=== PATIENT | female | born 1975 | race Caucasian/White ===

== ENCOUNTER → 2020-05-12 11:13 | Outpatient (BNVA) | payer OTHER, SELFPAY | PROVIDERS: PCP Internal Medicine; Visit Provider Orthopaedic Surgery | DX: M75.41 Impingement syndrome of right shoulder (principal) | CPT/HCPCS: 20610; J1100 ==

== ENCOUNTER 2020-07-05 15:00 | Outpatient (RCR) | payer OTHER, SELFPAY ==
--- NOTE | 2020-06-07 14:37 | MHC.PT.EP ---
[facility] [place] Office [place] Office [place] Office [address] Naomi Martins [address] [phone] F: [phone] F: [phone] F: [phone] F: [phone] Physical Therapy Plan of Care Date of Evaluation: 06/07/20 Date of Surgery: Diagnosis: R shoulder impingement. Assessment: Pt is a 44 y/o right hand dominant female referred to PT for eval and treat of R shoulder impingement who presents with signs and symptoms consistent with Dx resulting in decreased tolerance and ability to perform reaching a high shelf, dressing pullovers, performing fitness activities, and carrying objects of weight as well as disturbed sleep secondary to decreased UE strength and ROM, decreased posture, and pain. Pt is deemed an appropriate candidate to receive skilled PT in order to address her physical limitations to improve her functional ability. Frequency and Duration: The patient will be seen 2 x/ wk x 5 wks, Short Term Goals: In 1 week: initiate HEP with evidence of compliance. In 3 weeks: symmetrical pain free AROM achieved. Sap Director Goals: In 5 weeks: I with HEP. In 5 weeks: Pt will report no longer disturbed of sleep d/t shoulder pain. In 5 weeks: Improve R shoulder Flexion MMT to > 4+/5 and painless; initial: 4/5. and painful. Treatment Plan: Modalities to reduce pain, spasms and effusion. Manual therapy to restore motion and function. Therapeutic exercise to improve strength and flexibility. Neuromuscular re-education for posture and balance. Therapeutic activities to return to functional activities of daily living. Electronically signed by: William Paris PT. Please sign and return to therapist. Thank you for your referral.
--- NOTE | 2020-07-05 19:28 | MHC.PT.DC ---
[facility] [place] Office [place] Office [place] Office [address] Naomi Martins 140 [facility] [phone] F: [phone] F: [phone] F: [phone] F: [phone] Physical Therapy Discharge Report Diagnosis: R shoulder impingement. Date of Surgery: Date of Evaluation: 06/07/20 Date of Discharge: 07/05/20 Treatments to Date: 6 Cancellations to Date: 0 No Shows to Date: 0 Discharge Status: Patient Elected to Stop Recommend MD Follow-up Discharge Summary: Yajaira has been an active participant in her therapy in the clinic, she has attended 6 therapy sessions and feels good with scapular exercises in a favorable position though persists with R shoulder pain with flexion and abduction activities, she also persists with significantly disturbed sleep d/t shoulder pain. Pt's subjective shoulder pain and disability questionnaire worsened from 37% on evaluation to 52% indicating the patient is not progressing at this time and terminating therapy is indicated. Pt in agreement with DC at this time. Electronically signed by: Wililam Paris PT Please sign and return to therapist. Thank you for your referral.
== END 2020-07-05 19:37 | disposition home or self-care (01) ==
LOC: HO.PTCHIC 15:00
PROVIDERS: PCP Internal Medicine; Visit Provider Orthopaedic Surgery
DX: M75.41 Impingement syndrome of right shoulder (principal)
CPT/HCPCS: 97014; 97033; 97110; 97161

== ENCOUNTER → 2020-08-01 08:25 | Outpatient (BNVA) | payer OTHER, SELFPAY | PROVIDERS: PCP Internal Medicine; Visit Provider Orthopaedic Surgery ==

== ENCOUNTER 2020-08-15 13:41 | Outpatient (REF) | payer OTHER, SELFPAY ==
[2020-08-20 11:36] LABS: HPV 16 RNA NOT DETECTED (NOT DETECTED); HPV mRNA E6/E7 rflx Detected (Not Detected)
== END 2020-08-15 13:42 | disposition home or self-care (01) ==
LOC: HO.LAB 13:41
PROVIDERS: PCP Internal Medicine; Visit Provider Advanced Practice Midwife
DX: Z01.411 Encounter for gynecological examination (general) (routine) with abnormal findings (principal); Z11.51 Encounter for screening for human papillomavirus (HPV); T83.32XA Displacement of intrauterine contraceptive device, initial encounter; N88.9 Noninflammatory disorder of cervix uteri, unspecified
CPT/HCPCS: 87624; 87625; 88142

== ENCOUNTER 2020-08-22 14:53 | Outpatient (REF) | payer OTHER, SELFPAY ==
--- NOTE | ~2020-08-22 | MR_ITS ---
EXAMINATION: MR SHOULDER WITHOUT CONTRAST, RIGHT CLINICAL INFORMATION: Impingement syndrome of the right shoulder. Pain while moving. COMPARISON: None TECHNIQUE: MRI of the shoulder without contrast was performed on a high-field scanner. FINDINGS: ROTATOR CUFF: Within the supraspinatus tendon at the insertion, there is a 1.1 x 0.4 x 1 cm focus of low signal intensity, most consistent with calcific tendinitis. There is minimal surrounding tendinosis and peritendinous edema. No additional foci of calcific tendinitis. Tendons are otherwise intact. No tears. No muscle atrophy or fatty infiltration. BICEPS: Normal. CORACOACROMIAL ARCH: The undersurface of the acromion is flat with no subacromial spur. The acromioclavicular joint is normal. LABRUM/CAPSULE: Normal. GLENOHUMERAL JOINT/MARROW: No fracture or malalignment. Articular cartilage is well preserved. Bone marrow signal is normal. No joint effusion. MR/MR shoulder RT wo con IMPRESSION: 1. A 1.1 cm focus of calcific tendinitis at the supraspinatus insertion. Mild associated tendinosis. No tears. 2. Otherwise unremarkable MRI of the right shoulder.
== END 2020-08-22 14:54 | disposition home or self-care (01) ==
LOC: HO.US 14:53
PROVIDERS: Visit Provider Advanced Practice Midwife
DX: M75.41 Impingement syndrome of right shoulder (principal); T83.32XA Displacement of intrauterine contraceptive device, initial encounter
CPT/HCPCS: 73221

== ENCOUNTER → 2020-09-02 09:30 | Outpatient (BNVA) | payer OTHER, SELFPAY | PROVIDERS: PCP Internal Medicine; Visit Provider Orthopaedic Surgery ==

== ENCOUNTER 2020-09-12 13:35 | Outpatient (REF) | payer OTHER, SELFPAY ==
--- NOTE | ~2020-09-12 | US_ITS ---
EXAMINATION: ULTRASOUND PELVIS AND TRANSVAGINAL CLINICAL INFORMATION: Displacement of IUD. COMPARISON: None TECHNIQUE: Transabdominal and transvaginal imaging of pelvis is performed. FINDINGS: The uterus is anteverted and anteflexed measuring 7.8 cm in length, 3.8 cm in AP and 5.5 cm in transverse dimension. There is IUD well located in endometrial canal.. The myometrium is homogeneous in echotexture. There are small anechoic cysts in the cervix. The right ovary measures 3.1 x 1.8 x 2.2 cm and volume 6.4 mL. It appears unremarkable. Left 3 measures 2.8 x 2.7 x 2.2 cm and volume 11.8 mL. There is anechoic cyst measuring 1.6 x 1.1 x 1.6 cm. There is no free fluid in cul-de-sac. US/US pelvic and transvaginal IMPRESSION: Simple cyst left ovary. Intrauterine IUD in good position. No free fluid in the cul-de-sac.
== END 2020-09-12 13:36 | disposition home or self-care (01) ==
LOC: HO.US 13:35
PROVIDERS: Visit Provider Advanced Practice Midwife
DX: T83.32XA Displacement of intrauterine contraceptive device, initial encounter (principal)
CPT/HCPCS: 76830; 76856

== ENCOUNTER 2020-09-21 08:16 | Day surgery (SDC) | payer OTHER, SELFPAY ==
[2020-09-14 10:47] VITALS: BMI 26.6
--- NOTE | 2020-09-20 08:16 | P.CONAN_ITS ---
Documented by User: Angelica Figueroa 09/20/20 08:18 HPI - Anesthesia Eval Consult details Narrative: 44yo F for Right Shoulder Arthroscopy, poss rotator cuff repair PMFSH Active Problems Active Problems: All Active Problems (Updated 09/14/20 @ 10:52 by Alisha Solorzano) Normal Pap smear (Acute) PUD (peptic ulcer disease) (Acute) ADD (attention deficit disorder) (Acute) IUD strings lost (Acute) Impingement syndrome of right shoulder (Acute) Annual physical exam (Acute) Shoulder pain (Acute) Past Medical History Medical History ADD (attention deficit disorder) Annual physical exam Anxiety Arthritis Chronic low back pain COVID-19 vaccine series completed Depression Impingement syndrome of right shoulder Irregular heart beat IUD strings lost Normal Pap smear PTSD (post-traumatic stress disorder) PUD (peptic ulcer disease) Shoulder pain Surgical History Surgical History H/O cone biopsy of cervix H/O shoulder surgery Hx of section Hx of tonsillectomy S/P LASIK surgery Social History Social History Alcohol intake: current Alcohol intake frequency: holidays/special occasions only Patient Tobacco Use Status: Current everyday Tobacco user Tobacco use type: Cigarette Cigarette Packs Per Day: 1 Cigarettes Per Day: 20.0 Years Smoked: 33 Smoked in Last 30 Days: Yes Are you DNR?: No Advance Directives: No Advance Directives Information Provided: No Advance Directives on File: No Patient : No FDLMP: unknown : No Poor oral hygiene: No Current occupational status: employed 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 Meds Allergies Allergy/AdvReac Type Severity Reaction Status Date / Time No Known Allergies Allergy Verified 09/14/20 10:47 [No Known Allergies*] Home Medications Medication Instructions Recorded Confirmed Last Taken Type levonorgestrel 20 mcg/24 hours (6 20 mcg INTRAUTERINE DIRECTED 08/15/20 09/14/20 Unknown History yrs) 52 mg intrauterine device Exam Exam Date and Time: September 20, 2020 0816 Height,Weight and Vital Signs: Height 5 ft 4 in Weight 70.307 kg Assessment and Plan Assessment Anesthesia Assessment: Chart Reviewed Documented by User: Pham Anders 09/21/20 09:29 PMFSH Past Medical History Medical History ADD (attention deficit disorder) Annual physical exam Anxiety Arthritis Chronic low back pain COVID-19 vaccine series completed Depression Impingement syndrome of right shoulder Irregular heart beat IUD strings lost Normal Pap smear PTSD (post-traumatic stress disorder) PUD (peptic ulcer disease) Shoulder pain Family History Family history of problems with anesthesia: No Surgical History Surgical History H/O cone biopsy of cervix H/O shoulder surgery Hx of section Hx of tonsillectomy S/P LASIK surgery History of Problems with Anesthesia: No Social History Social History Alcohol intake: current Alcohol intake frequency: holidays/special occasions only Patient Tobacco Use Status: Current everyday Tobacco user Tobacco use type: Cigarette Cigarette Packs Per Day: 1 Cigarettes Per Day: 20.0 Years Smoked: 33 Smoked in Last 30 Days: Yes Are you DNR?: No Advance Directives: No Advance Directives Information Provided: No Advance Directives on File: No Patient : No FDLMP: unknown : No Poor oral hygiene: No Current occupational status: employed 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 Low voltage QRS. Inferior infarct, age undetermined. Cannot rule out Anterior infarct, age undetermined. Narrative Narrative: Patient denies any history of hypertension, chest pain, CAD, SOB. H/o dizzininess. Fainting spells approximately every 3 years. Had Holter monitor about 15 years ago and was told irregular heart beat but no therapy instituted. Last episode about a year ago. Has learnt to immerse self in cold water when she feels episode coming on and has not actually fainted recently. Airway Mallampati Class: II TM Dist: >3cm Neck ROM: Full Loose/Missing/Broken Teeth: No (Dental implant. Intact) Heart: RRR Lungs: CTAB Assessment and Plan Assessment Anesthesia Assessment: Anesthesia Plan Discussed and Chart Reviewed Final Anesthetic Review NPO: Yes ASA Class: III Final Preanesthetic Review: No Changes in Pt Med Stat, Meds/Allgs Chart Reviewed, Consent Obtained/Reviewed and Anes Risks/Benef Reviewed Patient Risk: Intermediate Procedure Risk: Low Assessment/Block/Sedation in SS: Assess/Block/Sedation-SS Anesthetic Plan Anesthetic Plan: GA and Regional Block (Right brachial plexus block) Disposition: Standard PACU
[2020-09-21 08:38] VITALS: BP 122/72; PULSE 87; RESP 16; TEMP 36.7; O2SAT 95
[2020-09-21 08:40] LABS: UPreg QC Valid YES; Urine Pregnancy NEGATIVE (NEGATIVE)
--- NOTE | 2020-09-21 08:48 | ECG_ITS ---
Test Reason : RHYTHM CHANGES Blood Pressure : / mmHG Vent. Rate : 085 BPM Atrial Rate : 085 BPM P-R Int : 140 ms QRS Dur : 078 ms QT Int : 356 ms P-R-T Axes : 056 -27 035 degrees QTc Int : 423 ms Normal sinus rhythm Low voltage QRS Cannot rule out Anterior infarct , age undetermined Abnormal ECG No previous ECGs available Referred By: Pham Anders Electronically Signed By:Mauricio Hester
[2020-09-21] MEDS: Lactated Ringers 1,000 ML 100 ML IVCONT (09:05)
--- NOTE | 2020-09-21 10:24 | MHC.SHP ---
Pre-Procedural Eval Section A The patient is an INPATIENT: No Changes since office visit: Yes Patient answered all questions; No Cold of Flu in the past 2 weeks, No New Medical Problems and No Changes in Medication The History & Physical has been completed within 30 days and I have reviewed it.: Yes Section B Chief Complaint: tendinitis shoulder Allergies: Allergies Allergy/AdvReac Type Severity Reaction Status Date / Time No Known Allergies Allergy Verified 09/14/20 10:47 [No Known Allergies*] Plan I have reviewed the history and physical and performed a pertinent physical examination on my patient. No changes have occurred unless specified.
--- NOTE | 2020-09-21 13:28 | PM.OP ---
Brief Operative Note Date of Service: 09/21/20 Pre-op diagnosis: right shoulder calcific tendonitis Post-op diagnosis: same Procedure: rtc repair resection of calcium biceps tenodesis Implants: simth and nephew PEEK labral anchor Mith and nephew double loaded helacoi x 2 and knotless helacoil x 2 Surgeon: Vince Elizabeth MD Anesthesia: GETA and regional Was an Catering Truck Driver used for this Procedure?: Yes Catering Truck Driver: Latha Mckeon Estimated blood loss (mL): 10 IV fluids (mL): 1,200 Pathology: none sent Condition: stable Disposition: PACU
[2020-09-21 13:42] VITALS: BP 110/53; PULSE 80; RESP 12; TEMP 37.1; O2SAT 98
[2020-09-21 13:48] VITALS: BP 106/58; PULSE 82; RESP 16; O2SAT 94
[2020-09-21 13:53] VITALS: BP 100/52; PULSE 80; RESP 16; O2SAT 92
[2020-09-21] MEDS: oxyCODONE HCl Immed Release 5 MG TABLET PO (13:54)
[2020-09-21] MEDS: Acetaminophen 325 MG TABLET 650 MG PO (13:54)
[2020-09-21 13:58] VITALS: BP 105/61; PULSE 84; RESP 16; O2SAT 93
[2020-09-21] MEDS: fentaNYL citrate/PF 100 MCG/2 ML VIAL 25 MCG IVPUSH ×2 (13:58→14:05)
[2020-09-21] MEDS: ondansetron HCL 4 MG/2 ML VIAL IVPUSH (14:11)
[2020-09-21 14:13] VITALS: BP 96/47; PULSE 75; RESP 16; O2SAT 96
[2020-09-21] MEDS: Ketorolac Tromethamine 15 MG/ML VIAL IVPUSH (14:13)
--- NOTE | 2020-09-22 16:58 | W.PM.OPN ---
Operative Note Operative Note Date of Service: 09/21/20 Narrative: Pre-op diagnosis: right shoulder calcific tendonitis Post-op diagnosis: same Procedure: rtc repair resection of calcium biceps tenodesis Implants: simth and nephew PEEK labral anchor Mith and nephew double loaded helacoi x 2 and knotless helacoil x 2 Surgeon: Vince Elizabeth MD Anesthesia: GETA and regional Was an Compliance Engineer Products used for this Procedure?: Yes Compliance Engineer Products: Latha Mckeon Estimated blood loss (mL): 10 IV fluids (mL): 1,200 Pathology: none sent Condition: stable Disposition: PACU Patient was brought to the operating room and placed the the beach chair position. All bony prominences were well padded and the limb was prepped and draped in standard sterile fashion. A time out was called to identify proper site, proper procedure and proper surgeon. IV antibiotics per weight were administered. I began by making a posterolateral stab incision with a 15 blade. A blunt trochar was placed into the glenohumeral joint and I insufflated the joint with saline and a 30 degree arthroscope was placed. I established an outside- in anterior portal just distal to the biceps tendon. I then began my inspection of the glenohumeral joint. The glenohumeral joint was pristine. There were no cartilage changes. Subscapularis and biceps tendon were intact. Labrum was intact. There was no obvious undersurface rotator cuff tear. I then removed the trochar and entered the subacromial space. A direct lateral portal was then established and I performed a bursectomy. The cuff was then examined. There was a large foci of calcium that was within the substance of the anterior leading edge and tendon of the supraspinatus as well as into the biceps tendon. I debrided this with a shaver and the biceps tendon was tenodesed within the groove usinag a 2.4 peek anchor. I then placed 2 medial row anchors and burred the footprint down to bleeding bone and performed a double row repair of the supraspinatus. Using standard technique I placed 2 lateral row knotless anchors and reapproximated the footprint. I had excellent compression and reproduction of normal anatomy. Final photographs were then obtained and all instrumentation was removed. Portals were closed with nylon patient placed in sterile dressing extubated brought to recovery room in a stable condition there were no known complications.
== END 2020-09-21 15:13 | disposition home or self-care (01) ==
PROVIDERS: Nurse Practitioner; PCP Internal Medicine; Visit Provider Orthopaedic Surgery
PROC: (CPT 29805; principal; 2020-09-21 10:00)
DX: M75.31 Calcific tendinitis of right shoulder (principal); M75.41 Impingement syndrome of right shoulder; F43.10 Post-traumatic stress disorder, unspecified; F41.9 Anxiety disorder, unspecified; F17.210 Nicotine dependence, cigarettes, uncomplicated
CPT/HCPCS: 29827; 29828; 81025; 93005; C1713; J0171; J0690; J1100; J1885; J2250; J2405; J3010

== ENCOUNTER → 2020-10-05 09:39 | Outpatient (BNVA) | payer OTHER, SELFPAY | PROVIDERS: PCP Internal Medicine; Visit Provider Physician Assistant ==

== ENCOUNTER 2020-10-17 10:07 | Outpatient (REF) | payer OTHER, SELFPAY | END 2020-10-17 10:08 | disposition home or self-care (01) | LOC: HO.LAB 10:07 | PROVIDERS: PCP Internal Medicine; Visit Provider Obstetrics & Gynecology | DX: R87.612 Low grade squamous intraepithelial lesion on cytologic smear of cervix (LGSIL) (principal) | CPT/HCPCS: 57454; 88305 ==

== ENCOUNTER → 2020-11-07 15:08 | Outpatient (BNVA) | payer OTHER, SELFPAY | PROVIDERS: PCP Internal Medicine; Visit Provider Obstetrics & Gynecology ==

== ENCOUNTER → 2020-11-14 12:12 | Outpatient (BNVA) | payer OTHER, SELFPAY | PROVIDERS: Visit Provider Orthopaedic Surgery ==

== ENCOUNTER → 2020-11-29 13:03 | Outpatient (BNVA) | payer OTHER, SELFPAY | PROVIDERS: Visit Provider Obstetrics & Gynecology ==

== ENCOUNTER 2020-12-14 13:33 | Outpatient (REF) | payer OTHER, SELFPAY ==
--- NOTE | ~2020-12-14 | MM_ITS ---
EXAMINATION: MM SCREENING DIGITAL BREAST TOMOSYNTHESIS, BILATERAL CLINICAL INFORMATION: Screening. Asymptomatic. The lifetime risk of breast cancer based on the Tyrer-Cuzick Model is 9%. COMPARISON: Mammography: 12/19/2017 (baseline) TECHNIQUE: Digital breast tomosynthesis is performed in both the craniocaudal and mediolateral oblique views along with computer-aided detection (CAD). Synthesized 2D images are generated from the tomosynthesis. FINDINGS: There are scattered areas of fibroglandular density (ACR BI-RADS breast composition Category b). There are no significant masses, abnormal calcifications, or other abnormalities. Parenchymal pattern is similar to prior exam. No significant changes. MM/MM tomosynthesis screening BI IMPRESSION: There are no significant changes from prior study. ASSESSMENT: BI-RADS 1: Negative RECOMMENDATION: Routine annual mammography screening. This patient's information was entered into a reminder system with a target due date for their next mammogram.
== END 2020-12-14 13:34 | disposition home or self-care (01) ==
LOC: HO.MAMMO 13:33
PROVIDERS: Visit Provider Advanced Practice Midwife
DX: Z12.31 Encounter for screening mammogram for malignant neoplasm of breast (principal)
CPT/HCPCS: 77063; 77067

== ENCOUNTER 2020-12-16 07:55 | Day surgery (SDC) | payer OTHER, SELFPAY ==
[2020-12-16 08:08] VITALS: BP 114/77; PULSE 98; RESP 18; TEMP 36.6; O2SAT 100; BMI 27.4
[2020-12-16 08:10] LABS: UPreg QC Valid YES; Urine Pregnancy NEGATIVE (NEGATIVE)
--- NOTE | 2020-12-16 09:13 | P.BOP_ITS ---
Brief Operative Note Date of Service: 12/16/20 Pre-op diagnosis: OK 1-ECC Post-op diagnosis: same Procedure: LEEP Surgeon: Ayo Looney MD Anesthesia: local and other (Paracervical block) Was an Outside Sales Engineer used for this Procedure?: No Estimated blood loss (mL): 0 Pathology: other (Cervical LEEP) Condition: stable Disposition: other (Home)
--- NOTE | 2020-12-16 09:13 | MHC.SHP ---
Pre-Procedural Eval Section A Date of Service: 12/16/20 The patient is an INPATIENT: No Changes since office visit: No Cold of Flu in the past 2 weeks, No New Medical Problems, No Changes in Medication and No Patient answered all questions The History & Physical has been completed within 30 days and I have reviewed it.: Yes Section B Chief Complaint: CIN1 Allergies: Allergies Allergy/AdvReac Type Severity Reaction Status Date / Time No Known Allergies Allergy Verified 11/14/20 12:24 [No Known Allergies*] Plan Diagnosis/Plan: Unchanged I have reviewed the history and physical and performed a pertinent physical examination on my patient. No changes have occurred unless specified.
[2020-12-16 09:16] VITALS: BP 118/69; PULSE 82; RESP 16; TEMP 36.2; O2SAT 99
--- NOTE | 2020-12-21 09:26 | W.PM.OPN ---
Operative Note Operative Note Date of Service: 12/16/20 Narrative: Preop diagnosis: Persistent OK I Operation: LEEP Post op diagnosis: same Anesthesia: paracervical block Complications: none Pathology: cervical LEEP QBL: minimal Procedure: The patient was put in the dorsal lithotomy position, was prepped and draped in the usual sterile fashion. A sterile speculum was inserted inside the patient vagina. Using Lugol solution the cervix with Dyed with Lugol solution to identifiy the abnormal demarcating line. 10 cc of Marcaine0.5% with epinephrine were given at 2, 4 , 8, and 10 o'clock. Using a medium-size loop wire, the cervical leep was excised including to include the cervix as a circular pathological specimen. Hemostasis was assured using cautery and Monsel solution. All instruments were taken out of the patient's vaginal cavity. the patient tolerated the procedure well and was discharged home with the following instructions: call if temperature is above 100.4, vaginal bleeding, abdominal pain or nausea or vomiting. Follow-up in the office in 2 weeks for postop visit
== END 2020-12-16 09:32 | disposition home or self-care (01) ==
PROVIDERS: PCP Internal Medicine; Visit Provider Obstetrics & Gynecology
PROC: 0UBC7ZZ Excision of Cervix, Via Natural or Artificial Opening (ICD-10-PCS; CPT 57522; principal; 2020-12-16 09:00)
DX: N87.0 Mild cervical dysplasia (principal); N72 Inflammatory disease of cervix uteri; F98.8 Other specified behavioral and emotional disorders with onset usually occurring in childhood and adolescence; F43.10 Post-traumatic stress disorder, unspecified
CPT/HCPCS: 57522; 81025; 88307

== ENCOUNTER → 2020-12-26 12:40 | Outpatient (BNVA) | payer OTHER, SELFPAY | PROVIDERS: PCP Internal Medicine; Visit Provider Orthopaedic Surgery ==

== ENCOUNTER → 2020-12-29 12:39 | Outpatient (BNVA) | payer OTHER, SELFPAY | PROVIDERS: PCP Internal Medicine; Visit Provider Obstetrics & Gynecology ==

== ENCOUNTER → 2021-03-06 13:53 | Outpatient (BNVA) | payer OTHER, SELFPAY | PROVIDERS: PCP Internal Medicine; Referring Provider Internal Medicine; Visit Provider Internal Medicine Cardiovascular Disease | DX: R94.31 Abnormal electrocardiogram [ECG] [EKG] (principal); R55 Syncope and collapse | CPT/HCPCS: 93005 ==

== ENCOUNTER 2022-05-17 06:25 | Outpatient (REF) | payer BC, SELFPAY ==
[2022-05-17 11:24] LABS: MANUAL DIFF FLAG NO
[2022-05-17 11:33] LABS: Basophils Absolute Auto 0.1 X10*3/uL (0.0-0.2); Basophils Percent Auto 0.9 % (0-2); Eosinophils Absolute Auto 0.2 X10*3/uL (0.0-0.4); Eosinophils Percent Auto 3.8 % (0-4); Hematocrit 44.4 % (37.0-47.0); Imm Gran Abs Auto 0.02 X10*3/uL (0.00-0.03); Imm Gran Pct Auto 0.3 % (0.0-0.4); Lymphocytes Absolute Auto 1.6 X10*3/uL (1.2-4.9); Lymphocytes Percent Auto 27.4 % (20-40); Mean Corpuscular HGB Conc 33.8 g/dl (31.0-35.0); Mean Corpuscular Hemoglobin 33.9 pg (27.0-33.0); Mean Corpuscular Volume 100.2 fL (80.0-98.0); Mean Platelet Volume 8.9 fL (9.4-12.3); Monocytes Absolute Auto 0.6 X10*3/uL (0.1-1.2); Monocytes Percent Auto 10.1 % (2-11); Neutrophils Absolute Auto 3.4 x10*3/uL (2.0-8.3); Neutrophils Percent Auto 57.5 % (45-73); Platelet Count 328 X10*3/uL (160-400); Red Blood Count 4.43 X10*6/uL (4.20-5.50); Red Cell Distribution Width 13.3 % (11.0-16.0); White Blood Count 5.8 X10*3/uL (4.8-10.8)
[2022-05-17 11:39] LABS: Appearance Urine Cloudy; Color Urine Dark Yellow; Glucose Urine UA Negative (Negative); Leukocyte Esterase Urine Trace (Negative); Nitrite Urine Negative (Negative); Specific Gravity - Urine 1.025 (1.005-1.025); UMIC TRIGGER UA YES; Urine Blood Negative (Negative); Urine Ketones Negative (Negative); Urine Protein 30 (1+) mg/dL (Neg-Trace)
[2022-05-17 11:58] LABS: Alanine Aminotransferase 9 U/L (0-31); Albumin Level 4.1 g/dL (3.5-5.0); Alkaline Phosphatase 53 U/L (39-117); Anion Gap 12 (12-20); Aspartate Amino Transferase 12 U/L (5-31); Bilirubin Total 0.6 mg/dL (0.0-1.0); Blood Urea Nitrogen 10 mg/dL (9-16); Carbon Dioxide 26 mmol/L (22-29); Chloride 106 mmol/L (96-108); Cholesterol 232 mg/dL; Estimated Glomerular Filt Rate > 60; Glucose Fasting 97 mg/dL (60-99); HDL Cholesterol 52 mg/dL; LDL Cholesterol Calculated 165 mg/dl; Potassium 4.2 mmol/L (3.3-5.1); Sodium 140 mmol/L (135-145); Total Protein 6.4 g/dL (6.5-8.0); Triglycerides 75 mg/dL
[2022-05-17 12:17] LABS: Bacteria Urine 1+ (None Seen); Folate 4.5 ng/mL (> or = 4.0); Hyaline Casts Urine 0-2 /LPF (0-2); RBC Urine 0-2 /HPF (0-2); TSH reflex Free T4 4.37 uIU/mL (0.32-4.0); Vitamin B12 180 pg/mL (200-900); Vitamin D 25-OH Total 17.3 ng/mL (>30); WBC Urine 0-5 /HPF (0-5)
[2022-05-17 12:55] LABS: Free T4 (Free Thyroxine) 0.86 ng/dL (0.71-1.85)
== END 2022-05-17 06:26 | disposition home or self-care (01) ==
LOC: HO.HMGCLDS 06:25
PROVIDERS: PCP Internal Medicine; Visit Provider Internal Medicine
DX: Z00.00 Encounter for general adult medical examination without abnormal findings (principal); F98.8 Other specified behavioral and emotional disorders with onset usually occurring in childhood and adolescence
CPT/HCPCS: 36415; 80053; 80061; 81001; 82306; 82607; 82746; 84439; 84443; 85025

== ENCOUNTER 2022-08-07 08:02 | Outpatient (REF) | payer BC, SELFPAY ==
--- NOTE | ~2022-08-07 | MM_ITS ---
EXAMINATION: MM SCREENING DIGITAL BREAST TOMOSYNTHESIS, BILATERAL CLINICAL INFORMATION: Screening. Asymptomatic. The lifetime risk of breast cancer based on the Tyrer-Cuzick Model is 8%. COMPARISON: Mammography: 12/14/2020, 12/19/2017 (baseline) TECHNIQUE: Digital breast tomosynthesis is performed in both the craniocaudal and mediolateral oblique views along with computer-aided detection (CAD). Synthesized 2D images are generated from the tomosynthesis. FINDINGS: There are scattered areas of fibroglandular density (ACR BI-RADS breast composition Category b). There are no significant masses, abnormal calcifications, or other abnormalities. Parenchymal pattern is similar to prior studies. There is no developing density or architectural abnormality. The axilla and skin contours are unremarkable. No significant changes. MM/MM tomosynthesis screening BI IMPRESSION: No mammographic evidence of malignancy. ASSESSMENT: BI-RADS 1: Negative RECOMMENDATION: Routine annual mammography screening. This patient's information was entered into a reminder system with a target due date for their next mammogram.
== END 2022-08-07 08:03 | disposition home or self-care (01) ==
LOC: HO.MAMMO 08:02
PROVIDERS: PCP Internal Medicine; Visit Provider Internal Medicine
DX: Z12.31 Encounter for screening mammogram for malignant neoplasm of breast (principal)
CPT/HCPCS: 77063; 77067

== ENCOUNTER 2022-09-03 08:27 | Outpatient (REF) | payer BC, SELFPAY ==
[2022-09-03 12:19] LABS: Folate 4.5 ng/mL (> or = 4.0); TSH reflex Free T4 3.92 uIU/mL (0.32-4.0); Vitamin B12 358 pg/mL (200-900)
== END 2022-09-03 08:28 | disposition home or self-care (01) ==
LOC: HO.HMGCLDS 08:27
PROVIDERS: PCP Internal Medicine; Visit Provider Internal Medicine
DX: E53.8 Deficiency of other specified B group vitamins (principal)
CPT/HCPCS: 36415; 82607; 82746; 84443

== ENCOUNTER 2023-01-24 15:00 | Outpatient (AMB) | payer MEDICAID, SELFPAY ==
[2023-01-24 15:18] VITALS: BP 100/66; BMI 24.9
--- NOTE | 2023-01-24 15:18 | MHC.OFFVIS ---
Intake Vital Signs 01/24/23 15:18 Height 5 ft 4 in Weight 145 lb BMI 24.9 BP 100/66 Intake Visit Reasons: Mirena replacement consult Intake Note: Annual exam The patient agreed to use of a emergency medical service manager during this encounter. Scribed for SHARYN Rajput by Justina Miller, emergency medical service manager, on 01/24/2023 at 3:30 pm EST Urban Planning Professor: Urban Planning Professor Present (Alisa) Allergies No Known Allergies [No Known Allergies*] Allergy (Verified 01/24/23 15:18) HPI HPI Comments History of Present Illness Details She is a premenopausal woman presenting for annual exam. 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 She attempts to eat healthy and stays active with exercise. Currently sexually active. Uses Mirena IUD for BC, inquiring about exchange. Denies hot flashes. Denies vaginal itching and irritation. STD screening offered; she declines. Denies family hx of breast, colon and ovarian cancer. Last pap smear 2020-OK 1>LEEP completed Last mammogram 08/07/22. UTD on colon cancer screening, Cologard. [facility] Medical History (Updated 01/24/23 @ 15:40 by Phuong Boswell CNM) Dysplasia of cervix, low grade (OK 1) Irregular heart beat Arthritis COVID-19 vaccine series completed Normal Pap smear PUD (peptic ulcer disease) ADD (attention deficit disorder) Impingement syndrome of right shoulder Annual physical exam Shoulder pain PTSD (post-traumatic stress disorder) Depression Anxiety Chronic low back pain Surgical History (Updated 01/24/23 @ 15:30 by Justina Miller) History of loop electrical excision procedure (LEEP) S/P LASIK surgery H/O cone biopsy of cervix H/O shoulder surgery Hx of tonsillectomy Hx of section Social History (Updated 01/24/23 @ 15:19 by Aleta Mcdaniels Stewart) Housing: House Alcohol intake: current Alcohol intake frequency: holidays/special occasions only Patient Tobacco Use Status: Current everyday Tobacco user Tobacco use type: Cigarette Cigarette Packs Per Day: 1 Cigarettes Per Day: 20.0 Years Smoked: 33 e-Cigarette/Vaping Use: Never Used Current occupational status: employed 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 Sexual orientation: Straight/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 Gender identity: Female Cognitive needs: No Hearing needs: No Vision needs: No Female Reproductive History Menstrual control method: progestin IUCD (Mirena 01/10/18) Total pregnancies: 5 Full term: 2 Number of Living Children: 2 Ab induced: 1 Ab spontaneous: 2 Date of last pap smear: 08/15/20 (lgsil +hpv) History of abnormal pap smear: Yes (12/17 +hpv 10/19 colpo cin1 12/20 leep cin1) Review of Systems Const All systems reviewed & are unremarkable except as noted in HPI and below Physical Exam Vital Signs: Last Vital Signs BP 100/66 01/24/23 15:18 BMI result Body Mass Index 24.9 Const General: cooperative, healthy appearing, no acute distress, well developed and alert Orientation/consciousness: patient oriented x3 HEENT Head: Yes normal to inspection Eyes General: appearance normal, both eyes and all related structures Neck Neck: Yes normal visual inspection Thyroid: Thyroid normal Chest Chest palpation & inspection: normal inspection of the chest Breast/axilla inspection: normal inspection of the breasts (no puckering, dimpling, peau de orange, retraction, discharge, masses) Breast/axilla palpation: normal palpation of the breasts Resp Effort & Inspection: normal respiratory effort GI Inspection: Yes normal to inspection Palpation (GI): Soft to palpation Rectal Exam - Female: deferred General: Yes bladder normal to palpation External Female Exam: normal external appearance and normal appearance of the urethra Speculum Exam - Vagina: normal appearance of the vagina, normal palpation and normal vaginal discharge Speculum Exam - Cervix: normal appearance of the cervix (Post LEEP appearance. IUD string visible. Small amount of white discharge) and normal palpation Bimanual exam- vagina & uterus: normal bimanual exam, normal palpation, uterine size normal, bladder normal to palpation and normal palpation Bimanual Exam- Adnexa, other: normal adnexae and no masses Skin General skin exam: no rashes or lesions noted Neuro General: patient oriented x3 Cognition (Neuro): normal cognition Extrem General: Yes normal to inspection Psych Attitude: cooperative Thought process: Normal thought process present Assessment & Plan Assessment & Plan (1) Encounter for well woman exam: Code(s): Z01.419 - Encounter for gynecological examination (general) (routine) without abnormal findings Plan: Discussed: Current recommendations for pap smears per ASCCP guidelines. Breast awareness and periodic self breast exams. Encouraged yearly mammograms. Maintaining a healthy lifestyle including a well balanced diet including Calcium and Vitamin D and routine exercise. All of her questions and concerns were addressed to the best of my ability. RTO in one year for AG. (2) Surveillance for control, intrauterine device: Code(s): Z30.431 - Encounter for routine checking of intrauterine contraceptive device Plan: Discussed Mirena is approved for 8 years. Recommended keeping through menopause. Contact office with any concerns. (3) Abnormal Pap smear of cervix: Code(s): R87.619 - Unspecified abnormal cytological findings in specimens from cervix uteri Coding Level of Care Code Est Pt Prev Care 40-64y(00014) Diagnoses Encounter for well woman exam Z01.419 Surveillance for control, intrauterine device Z30.431 Abnormal Pap smear of cervix R87.619
== END 2023-01-24 15:37 | disposition home or self-care (01) ==
PROVIDERS: PCP Internal Medicine; Visit Provider Advanced Practice Midwife
DX: Z01.419 Encounter for gynecological examination (general) (routine) without abnormal findings (principal); Z30.431 Encounter for routine checking of intrauterine contraceptive device; R87.619 Unspecified abnormal cytological findings in specimens from cervix uteri
CPT/HCPCS: 99396

== ENCOUNTER 2023-01-24 15:00 | Outpatient (REF) | payer BC, MEDICAID, SELFPAY ==
[2023-01-29 18:18] LABS: HPV mRNA E6/E7 rflx Not Detected (Not Detected)
== END 2023-01-24 15:01 | disposition home or self-care (01) ==
LOC: HO.LNP 15:00
PROVIDERS: PCP Internal Medicine; Visit Provider Advanced Practice Midwife
DX: Z01.419 Encounter for gynecological examination (general) (routine) without abnormal findings (principal); Z11.51 Encounter for screening for human papillomavirus (HPV)
CPT/HCPCS: 87624; 88142

== ENCOUNTER 2023-01-30 08:47 | Outpatient (REF) | payer MEDICAID, SELFPAY | END 2023-01-30 08:48 | disposition home or self-care (01) | LOC: HO.SH 08:47 | PROVIDERS: Visit Provider Internal Medicine | DX: Z01.118 Encounter for examination of ears and hearing with other abnormal findings (principal); H90.41 Sensorineural hearing loss, unilateral, right ear, with unrestricted hearing on the contralateral side | CPT/HCPCS: 92557; 92567 ==

== ENCOUNTER 2023-03-07 08:58 | Outpatient (AMB) | payer OTHER, MEDICAID, SELFPAY ==
--- NOTE | 2023-03-07 08:59 | AM.OFFWIN_ITS ---
Intake Vital Signs 03/07/23 09:01 Height 5 ft 4 in Weight 147 lb 8 oz BMI 25.3 BP 96/52 L Blood Pressure Location Rt brachial Position Sitting Pulse 84 Pulse Source Pulse Oximeter Temp 97.3 F Temp Source Temporal Artery Scan Pulse Oximetry (%) 95 Oxygen Delivery Method Room Air Intake Visit Reasons: EST/headaches(lobby) Intake Note: Pt is here c/o on going headache. Pt states she feels like she is straining her eyes. Patient Tobacco Use Status: Current everyday Tobacco user Allergies No Known Allergies [No Known Allergies*] Allergy (Verified 03/07/23 09:00) Do you need a note to return to daycare/school/sports/work: No HPI EST/headaches(lobby) HPI Details This is a 47 year old female patient who presents today with c/o 2 instances of headaches over the last 2 days. She reports experiencing a 5-10 minute mild frontal headache each of the last 2 days. This was associated with patient seeing prisms in her vision. Denied blurry vision, photophobia, double vision. Also denies nausea, vomiting, eye pain, ear pain, sinus pressure, lightheadedness, dizziness, or any other associated symptoms. History of uncomplicated lasik vision surgery several years ago. Denies any change in health, diet, medications. [facility] Medical History Dysplasia of cervix, low grade (OK 1) Irregular heart beat Arthritis COVID-19 vaccine series completed Normal Pap smear PUD (peptic ulcer disease) ADD (attention deficit disorder) Impingement syndrome of right shoulder Annual physical exam Shoulder pain PTSD (post-traumatic stress disorder) Depression Anxiety Chronic low back pain Surgical History History of loop electrical excision procedure (LEEP) S/P LASIK surgery H/O cone biopsy of cervix H/O shoulder surgery Hx of tonsillectomy Hx of section Social History Housing: House Alcohol intake: current Alcohol intake frequency: holidays/special occasions only Patient Tobacco Use Status: Current everyday Tobacco user Tobacco use type: Cigarette Cigarette Packs Per Day: 1 Cigarettes Per Day: 20.0 Years Smoked: 33 e-Cigarette/Vaping Use: Never Used Current occupational status: employed 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 Sexual orientation: Straight/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 Gender identity: Female Cognitive needs: No Hearing needs: No Vision needs: No Review of Systems Const All systems reviewed & are unremarkable except as noted in HPI and below Physical Exam Vital Signs: Last Vital Signs Temp 97.3 F 03/07/23 09:01 Pulse 84 03/07/23 09:01 BP 96/52 L 03/07/23 09:01 Pulse Ox 95 03/07/23 09:01 Oxygen Delivery Method Room Air 03/07/23 09:01 BMI result Body Mass Index 25.3 Const General: cooperative, healthy appearing, comfortable and no acute distress Nutritional Appearance: average body habitus Orientation/consciousness: patient oriented x3 HEENT Head: Yes normal to inspection and Yes normocephalic Ears: hearing grossly normal bilaterally, external ears normal, TM normal on the right and unable to visualize TM on the left (cerumen) General nose exam: Normal external nose present, Normal nares present, Normal nasal mucous membranes and turbinates present, Normal septum present and No nasal discharge present Face and sinus: Yes normal facial exam and Yes sinuses nontender Mouth: Normal oral and palatal mucosa present and moist mucous membranes Throat: Yes posterior oropharynx normal Eyes General: appearance normal, both eyes and all related structures Visual Randall: normal visual randall by confrontation Alignment and Position: alignment normal and position normal Periorbital: periorbital findings normal Eyelids: Yes eyelids normal Conjunctivae: conjunctivae normal Sclerae: sclerae normal Corneas: corneas normal Pupils: Equal, round and reactive pupils present and Pupil accommodation reflex normal EOM: EOMs intact bilaterally Direct Ophthalmoscopy: normal light reflex and no photophobia Neck Neck: Yes no lymphadenopathy Resp Effort & Inspection: normal respiratory effort and able to speak in complete sentences Auscultation: clear to auscultation bilaterally Cardio Jugular venous distension: no JVD Palpation: normal PMI Rate: regular rate Rhythm: regular rhythm Skin General skin exam: no rashes or lesions noted Neuro General: patient oriented x3, Normal light touch and pain sensation and no focal motor deficits Cranial nerves: Yes Equal, round and reactive pupils present Extrem General: Yes capillary refill normal and Yes no clubbing, cyanosis or edema Psych Appearance: grossly normal Mental Status: mental status grossly normal Speech and movement: Normal speech and movement present Assessment & Plan Assessment & Plan (1) Frontal headache: Code(s): R51.9 - Headache, unspecified Plan: Patient has had two frontal headaches over the last two days. Physical exam today is unremarkable. NIH stroke scale 0. We discussed trying Tylenol/Motrin as needed, and to monitor symptoms, and when these occur to try resting/lying down to see if symptoms improve. If she develops any worsening or new symptoms, she should return to the clinic or f/u with PCP. She verbalizes understanding and agrees to plan. Coding Level of Care Code Est Pt Level 3 (90975) Diagnoses Frontal headache R51.9
[2023-03-07 09:01] VITALS: BP 96/52; PULSE 84; TEMP 36.3; O2SAT 95; BMI 25.3
== END 2023-03-07 09:42 | disposition home or self-care (01) ==
PROVIDERS: PCP Internal Medicine; Visit Provider Nurse Practitioner Family
DX: R51.9 Headache, unspecified (principal)
CPT/HCPCS: 99213

== ENCOUNTER 2024-02-04 08:52 | Outpatient (REF) | payer OTHER, SELFPAY ==
[2024-02-05 11:46] LABS: HPV 16,18/45 See PAP report
== END 2024-02-04 08:53 | disposition home or self-care (01) ==
LOC: HO.LNP 08:52
PROVIDERS: PCP Internal Medicine; Visit Provider Advanced Practice Midwife
DX: Z01.419 Encounter for gynecological examination (general) (routine) without abnormal findings (principal); Z87.42 Personal history of other diseases of the female genital tract
CPT/HCPCS: 87624; 88175

== ENCOUNTER 2024-02-04 08:52 | Outpatient (AMB) | payer OTHER, SELFPAY ==
--- NOTE | 2024-02-04 09:01 | A.OFFVIS_ITS ---
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 She is doing well with no concerns. Attempting to eat a healthy diet with calcium and vitamin D and stays active with exercise. Currently sexually active. Denies any vaginal dryness or irritation. STI testing offered; she declines. Mirena 2017, not bleeding concerns, used for BC. Last pap smear; history of LEEP 2020, last Pap 2022-negative. Last mammogram; 2022. Cologard 2022. Denies any family history of breast, ovarian or colon cancer. Smoker 1ppd, not ready to quit. [facility] Medical History Dysplasia of cervix, low grade (OK 1) Irregular heart beat Arthritis COVID-19 vaccine series completed PUD (peptic ulcer disease) ADD (attention deficit disorder) Impingement syndrome of right shoulder Annual physical exam Shoulder pain PTSD (post-traumatic stress disorder) Depression Anxiety Chronic low back pain Surgical History History of loop electrical excision procedure (LEEP) S/P LASIK surgery H/O cone biopsy of cervix H/O shoulder surgery Hx of tonsillectomy Hx of section Social History Housing: House Alcohol intake: current Alcohol intake frequency: holidays/special occasions only Patient Tobacco Use Status: Current everyday Tobacco user Tobacco use type: Cigarette Cigarette Packs Per Day: 1 Cigarettes Per Day: 20.0 Years Smoked: 33 e-Cigarette/Vaping Use: Never Used Current occupational status: employed 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 Sexual 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: 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/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 Gender identity: Female Cognitive needs: No Hearing needs: No Vision needs: No Female Reproductive History Menstrual control method: progestin IUCD (Mirena 12/2017) Total pregnancies: 5 Full term: 2 Ab induced: 1 Ab spontaneous: 2 Date of last pap smear: 01/24/23 (negative pap smear negative hpv) History of abnormal pap smear: Yes Date of Mammogram: 08/07/22 (bi-rad 1) Review of Systems Const All systems reviewed & are unremarkable except as noted in HPI and below Reports as per HPI Eyes Reports no additional complaints ENT Reports no additional complaints Card Reports no additional complaints Resp Reports no additional complaints GI Reports as per HPI and Reports no additional complaints Reports as per HPI Musc Reports no additional complaints Skin/Breast Reports as per HPI Neuro Reports no additional complaints Psych Reports no additional complaints Endo Reports no additional complaints Iván/Lymph Reports no additional complaints Aller/Immun Reports no additional complaints Physical Exam Vital Signs: Last Vital Signs BP 104/68 02/04/24 09:07 BMI result Body Mass Index 26.1 Const General: cooperative, healthy appearing, no acute distress, well developed and alert Orientation/consciousness: patient oriented x3 HEENT Head: Yes normal to inspection Eyes General: appearance normal, both eyes and all related structures Neck Neck: Yes normal visual inspection Thyroid: Thyroid normal Chest Chest palpation & inspection: normal inspection of the chest and other (no puckering, dimpling, peau de orange, retraction, discharge, masses) Breast/axilla inspection: normal inspection of the breasts Breast/axilla palpation: normal palpation of the breasts Resp Effort & Inspection: normal respiratory effort GI Inspection: Yes normal to inspection Palpation (GI): Soft to palpation Rectal Exam - Female: deferred General: Yes bladder normal to palpation External Female Exam: normal external appearance and normal appearance of the urethra Speculum Exam - Vagina: normal appearance of the vagina, normal palpation and normal vaginal discharge Speculum Exam - Cervix: normal appearance of the cervix, normal palpation and Other cervical findings present (IUD string short at the os) Bimanual exam- vagina & uterus: normal bimanual exam, normal palpation, uterine size normal, bladder normal to palpation, normal palpation and non-tender Bimanual Exam- Adnexa, other: no masses Skin General skin exam: no rashes or lesions noted Rashes: no rashes Neuro General: patient oriented x3 Cognition (Neuro): normal cognition Extrem General: Yes normal to inspection Psych Attitude: cooperative Thought process: Normal thought process present Assessment & Plan Assessment & Plan (1) Encounter for well woman exam with routine gynecological exam: Code(s): Z01.419 - Encounter for gynecological examination (general) (routine) without abnormal findings Category: Medical (2) History of abnormal cervical Pap smear: Code(s): Z87.42 - Personal history of other diseases of the female genital tract Category: Medical Plan Discussed: Current recommendations for pap smears per ASCCP guidelines. Breast awareness, periodic self breast exams and yearly mammogram. Mammogram order placed. Maintain a healthy lifestyle, well balanced diet including Calcium 1,200 mg and Vitamin D 600 IU daily, and routine exercise. Encouraged tobacco sensation. Patient verbalizes understanding and agrees to the plan of care. She was given opportunity to ask questions and all questions were answered to the best of my ability. RTO in 1 year for annual home health aid exam. This note is constructed using voice recognition software. While every effort has been made to ensure accuracy, polishing pad mounter errors may have been included. Orders: Orders MM tomosynthesis screening BI Today Z12.31 - Encounter for screening mammogram for malignant neoplasm of breast Coding Level of Care Code Est Pt Prev Care 40-64y(65658) Diagnoses Encounter for well woman exam with routine gynecological exam Z01.419 History of abnormal cervical Pap smear Z87.42
[2024-02-04 09:07] VITALS: BP 104/68; BMI 26.1
== END 2024-02-04 09:30 | disposition home or self-care (01) ==
PROVIDERS: PCP Internal Medicine; Visit Provider Advanced Practice Midwife
DX: Z01.419 Encounter for gynecological examination (general) (routine) without abnormal findings (principal); Z87.42 Personal history of other diseases of the female genital tract
CPT/HCPCS: 99396

== ENCOUNTER 2024-05-14 13:40 | Outpatient (AMB) | payer OTHER, SELFPAY ==
--- OUTSIDE RECORDS SUMMARY | 2024-05-14 13:48 | XMS_ITS | Clinical Summary ---
Author Organization [facility] ity Address [address] [place] [address] Care Team Providers Care Polymer Specialist Name Role Phone Ursula Easley MD Primary Care Provider [phone] Surgical History Surgery Date Site/Laterality Comments TONSILLECTOMY PROCEDURE: WA TONSILLECTOMY PRIMARY/SECONDARY <AGE 12; COMMENT: actual age uncertain SECTION PROCEDURE: HISTORICAL DELIVERY; COMMENT: x 2 1996 SHOULDER ARTHROSCOPY PROCEDURE: [place] SURGICAL ARTHROSCOPY SHOULDER W/LSS&RESCJ ADS Medical History Medical History Date Comments Depressive disorder, not els ewhere classified DX:Depressive disorder, not elsewhere classified Family History Medical History Relation Name Comments Other: diabetes? Father at 67 Other: diabetes, borderline Mother Other: hyperlipidemia Mother Breast cancer Neg Hx Colon cancer Neg Hx Ovarian cancer Neg Hx Uterine cancer Neg Hx Relation Name Status Comments Father Mother Social History Tobacco Use Types Packs/Day Years Used Date Smoking Tobacco: Every Day Cigarettes Smokeless Tobacco: Never Alcohol Use Standard Drinks/Week Comments Yes 0 (1 standard drink = 0.6 oz pur e alcohol) Comments Unknown Sex and Gender Information Value Date Recorded Sex Assigned at Not on file Legal Sex Female 10:42 PM EST Gender Identity Not on file Sexual Orientation Not on file Obstetrics History Plan of Treatment Health Maintenance Due Date Last Done Comments Breast Cancer Screening 1973 Pneumococcal Vaccine: Pediat rics (0 to 5 Years) and At-Risk Patients (6 to 64 Years) (1 of 2 - PCV) 11/12/1979 Hepatitis B Vaccines (1 of 3 - 19+ 3-dose series) 1992 Cervical Cancer Screening: P ap Smear 1994 DTaP,Tdap,and Td Vaccines (2 - Td or Tdap) 11/17/2019 11/16/2009 Zoster Vaccines (1 of 2) 11/12/2023 COVID-19 Vaccine (1 - 2023-2 5 season) 2023 Influenza Vaccine (#1) 2023 Colorectal Cancer Screening: Colonoscopy 01/09/2024 Depression Screening 01/09/2024 HIV Screening 01/09/2024 Hepatitis C Screening 01/09/2024 Social Influencers of Health Screening 01/09/2024 HIB Vaccines Aged Out No longer eligi ble based on patient's age to complete this topic HPV Vaccines Aged Out No longer eligi ble based on patient's age to complete this topic Hepatitis A Vaccines Aged Out No long er eligible based on patient's age to complete this topic IPV Vaccines Aged Out No longer eligi ble based on patient's age to complete this topic MMR Vaccines Aged Out No longer eligi ble based on patient's age to complete this topic Meningococcal ACWY Vaccine Aged Out N o longer eligible based on patient's age to complete this topic RSV Immunization Patients Un brandy 20 months Aged Out No longer eligible b ased on patient's age to complete this topic Varicella Vaccines Aged Out No longer eligible based on patient's age to complete this topic Care Teams Polymer Specialist Relationship Specialty Start Date End Date Ursula Easley MD [address] [place] [id number] PCP - General 01/26/16
[2024-05-14 14:14] VITALS: BP 94/70; PULSE 70; RESP 18; TEMP 36.7; O2SAT 94; BMI 26.3
--- NOTE | 2024-05-14 14:14 | A.OFFPC_ITS ---
Vital Signs 05/14/24 14:14 Height 5 ft 4 in Weight 153 lb BMI 26.3 BP 94/70 Blood Pressure Location Lt brachial Position Sitting Respiration 18 Pulse 70 Pulse Source Pulse Oximeter Temp 98.1 F Temp Source Oral Pulse Oximetry (%) 94 Oxygen Delivery Method Room Air Intake Visit Reasons: Weight loss meds Intake Note: Pt is here today for a follow up visit to discuss weight loss medication. Allergies No Known Allergies [No Known Allergies*] Allergy (Verified 05/14/24 14:19) Medication List - Last Reconciled 05/14/24 by Daphne Gee MD cyanocobalamin (vitamin B-12) 1,000 mcg PO DAILY levonorgestrel (Mirena) 20 mcg intrauterine DIRECTED Tobacco use date assessed: 05/14/24 Dental Screening Dental Screen Date: 05/14/24 Did you have a dental visit in the last 12 months?: Yes Did you have a dental problem in the last 6 months where you did not have access to dental care?: No Was dental information given to patient?: Patient has dentist HPI HPI Comments History of Present Illness Details Patient presents for physical. She has been decreasing caloric intake eating mainly chicken and veggies and has been trying to lose weight. Patient has not been exercising regularly because of her busy work schedule. She is established with director of knowledge management for a Pap smear and pelvic exam. [facility] Medical History (Updated 05/14/24 @ 15:05 by Daphne Gee MD) Dysplasia of cervix, low grade (OK 1) Irregular heart beat Arthritis COVID-19 vaccine series completed PUD (peptic ulcer disease) ADD (attention deficit disorder) Impingement syndrome of right shoulder Annual physical exam Shoulder pain PTSD (post-traumatic stress disorder) Depression Anxiety Chronic low back pain Surgical History History of loop electrical excision procedure (LEEP) S/P LASIK surgery H/O cone biopsy of cervix H/O shoulder surgery Hx of tonsillectomy Hx of section Social History Housing: House Alcohol intake: current Alcohol intake frequency: holidays/special occasions only Patient Tobacco Use Status: Current everyday Tobacco user Tobacco use type: Cigarette Cigarette Packs Per Day: 1 Cigarettes Per Day: 20.0 Years Smoked: 33 e-Cigarette/Vaping Use: Never Used service: No Current occupational status: employed 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 1. Little interest or pleasure in doing things: not at all 2. Feeling down, depressed, or hopeless: not at all 3. Trouble falling or staying asleep, or sleeping too much: not at all 4. Feeling tired or having little energy: nearly every day 5. Poor appetite or overeating: not at all 6. Feeling bad about yourself - or that you are a failure or have let yourself or your family down: not at all 7. Trouble concentrating on things, such as reading the newspaper or watching television: nearly every day 8. Moving or speaking so slowly that other people could have noticed. Or the opposite - being so fidgety or restless that you have been moving around a lot more than usual: not at all 9. Thoughts that you would be better off or of hurting yourself in some way: not at all Total score: 6 Depression Screening Interpretation: Negative Depression Screening Done: Yes 30160 - PHQ-9 Billing: Yes Source: Developed by Drs. Chris Plasencia, Yola Muñiz, Vimal Gross and colleagues, with an educational roxy from [employer]. Thrive Questionnaire Date Thrive assessed: 05/14/24 I am a: Patient What is your living situation today?: I have a steady place to live Within the past 12 months, did the food you bought not last and you didn't have the money to get more?: Never true Within the past 12 months, did you worry whether your food would run out before you got money to buy more?: Never true Do you have trouble paying for medicines?: No Do you have trouble getting transportation to medical appointments?: No Do you have trouble paying your heating and electricity bill?: No Do you have trouble taking care of your child, family member or friend?: No Do you have trouble with day-to-day activities such as bathing, preparing meals, shopping, managing finances, etc.?: No Are you currently unemployed and looking for a job?: No Are you interested in more education?: No Please select the resources that you would like help with: None Currently or been in a relationship where the following occur: No concerns reported THRIVE Score: 0 AUDIT C Alcohol Use Questionnaire (AUDIT-C) 1. How often do you have a drink containing alcohol?: Monthly or less 2. How many drinks containing alcohol do you have on a typical day when you are drinking?: 1 or 2 3. How often do you have six or more drinks on one occasion?: Never Total Score: 1 SUSI-7 AMB Questionnaire SUSI-7 Date SUSI - 7 assessed: 05/14/24 Feeling nervous, anxious, or on edge: 2 = More than half the days Not being able to stop or control worryin = Several days Worrying too much about different things: 1 = Several days Trouble relaxin = Nearly every day Being so restless that it is hard to sit still: 3 = Nearly every day Becoming easily annoyed or irritable: 0 = Not at all Feeling afraid as if something awful might happen: 0 = Not at all Total SUSI-7 score (0-4 normal; 5-9 mild; 10-14 moderate; 15-21 severe): 10 Source: Developed by Drs. Chris Plasencia, Yola Muñiz, Vimal Gross and colleagues, with an educational roxy from [employer]. SUSI-7 Assessment Billing SUSI-7 Assessment Tool: SUSI-7 Assessment 67270 Review of Systems Const All systems reviewed & are unremarkable except as noted in HPI and below Eyes Reports no additional complaints ENT Reports no additional complaints Card Reports no additional complaints Resp Reports no additional complaints GI Reports no additional complaints Reports no additional complaints Physical exam (Primary Care) Vital Signs: Last Vital Signs Temp 98.1 F 05/14/24 14:14 Pulse 70 05/14/24 14:14 Resp 18 05/14/24 14:14 BP 94/70 05/14/24 14:14 Pulse Ox 94 05/14/24 14:14 Oxygen Delivery Method Room Air 05/14/24 14:14 BMI result Body Mass Index 26.3 Tobacco/Smoking Status: Tobacco use Status Tobacco use date assessed 05/14/24 05/14/24 14:22 Patient Tobacco Use Status Current everyday Tobacco 05/14/24 14:17 Tobacco use type Cigarette 05/14/24 14:17 e-Cigarette/Vaping Use Never Used 05/14/24 14:17 PHQ-9: PHQ-9 Score PHQ-9: Total score 6 05/14/24 14:22 Depression Screening Interpretation: Negative Thrive Assessment: Date of Thrive Assessment Date Thrive assessed 05/14/24 05/14/24 14:22 Currently or been in a relationship where the following occur: No concerns reported Const General: no acute distress HENMT Head: Yes normal to inspection Ears: hearing grossly normal bilaterally Mouth: Normal oral and palatal mucosa present Eyes General: appearance normal, both eyes and all related structures Neck Neck: Yes no lymphadenopathy and Yes supple Resp Effort & Inspection: normal respiratory effort Auscultation: clear to auscultation bilaterally Cardio Rhythm: regular rhythm Heart sounds: S1 normal heart sound present and S2 normal heart sound present GI Inspection: Yes normal to inspection Palpation (GI): Soft to palpation Percussion: Yes normal to percussion Auscultation: normal bowel sounds Coding Level of Care Code Est Pt Prev Care 40-64y(50864) Diagnoses Hyperlipemia E78.5 Annual physical exam Z00.00 Low vitamin B12 level E53.8 Tobacco dependence F17.200 Colon cancer screening Z12.11 Additional Codes SUSI-7 Assessment Billing - SUSI-7 Assessment Tool: SUSI-7 Assessment 37822 ([id number]) PHQ-9 - 86857 - PHQ-9 Billing: Yes ([id number]) Assessment & Plan Assessment & Plan (1) Hyperlipemia: Code(s): E78.5 - Hyperlipidemia, unspecified Category: Medical Plan: Continue low-cholesterol diet increase physical activity discussed with the patient. She will return for fasting blood work (2) Annual physical exam: Code(s): Z00.00 - Encounter for general adult medical examination without abnormal findings Category: Medical Plan: Patient will call to schedule an appointment for mammogram. She had negative Cologuard and is established with director of knowledge management (3) Low vitamin B12 level: Code(s): E53.8 - Deficiency of other specified B group vitamins Category: Medical Plan: Continue vitamin B12 supplement check the level (4) Tobacco dependence: Comment: Smoking on and off for 20 years up to a pack a day. Did not smoke for 2 years the last 5 yrs. she quit smoking on Chantix in the past Code(s): F17.200 - Nicotine dependence, unspecified, uncomplicated Category: Medical Plan: Tobacco quitting discussed with the patient. She is not ready to quit yet but is contemplating it (5) Colon cancer screening: Comment: Negative Desiree 08/2022 Code(s): Z12.11 - Encounter for screening for malignant neoplasm of colon Category: Medical Plan: Patient declined colonoscopy Orders: Orders Complete Blood Count Auto Diff Today E53.8 - Deficiency of other specified B group vitamins, E78.5 - Hyperlipidemia, unspecified, Z00.00 - Encounter for general adult medical examination without abnormal findings Vitamin B12 and Folate Today E53.8 - Deficiency of other specified B group vitamins, E78.5 - Hyperlipidemia, unspecified, Z00.00 - Encounter for general adult medical examination without abnormal findings Vitamin D 25-OH Total Today E53.8 - Deficiency of other specified B group vitamins, E78.5 - Hyperlipidemia, unspecified, Z00.00 - Encounter for general adult medical examination without abnormal findings Comprehensive Angora. Panel Fast Today E53.8 - Deficiency of other specified B group vitamins, E78.5 - Hyperlipidemia, unspecified, Z00.00 - Encounter for general adult medical examination without abnormal findings Lipid Panel Today E53.8 - Deficiency of other specified B group vitamins, E78.5 - Hyperlipidemia, unspecified, Z00.00 - Encounter for general adult medical examination without abnormal findings TSH reflex Free T4 Today E53.8 - Deficiency of other specified B group vitamins, E78.5 - Hyperlipidemia, unspecified, Z00.00 - Encounter for general adult medical examination without abnormal findings
== END 2024-05-14 15:07 | disposition home or self-care (01) ==
PROVIDERS: PCP Internal Medicine; Visit Provider Internal Medicine
DX: E78.5 Hyperlipidemia, unspecified (principal); Z00.00 Encounter for general adult medical examination without abnormal findings; E53.8 Deficiency of other specified B group vitamins; F17.200 Nicotine dependence, unspecified, uncomplicated; Z12.11 Encounter for screening for malignant neoplasm of colon

== ENCOUNTER → 2024-05-14 13:40 | Outpatient (BNVA) | payer OTHER, SELFPAY | PROVIDERS: PCP Internal Medicine; Visit Provider Internal Medicine | DX: Z00.00 Encounter for general adult medical examination without abnormal findings (principal); E78.5 Hyperlipidemia, unspecified; E53.8 Deficiency of other specified B group vitamins; F17.210 Nicotine dependence, cigarettes, uncomplicated | CPT/HCPCS: 96127 ==

== ENCOUNTER 2024-07-17 06:07 | Outpatient (REF) | payer OTHER, SELFPAY ==
--- OUTSIDE RECORDS SUMMARY | 2024-07-17 06:08 | XMS_ITS ---
Author Name [facility] Organization Unknown Care Team Organization Name Specialty Phone Email Start Date End Da te [employer] 01/14/2022 0 11/18/2023
--- OUTSIDE RECORDS SUMMARY | 2024-07-17 06:08 | XMS_ITS | Clinical Summary ---
Author Organization [facility] Address [address] [place] [address] Care Team Providers Care Group Leader Wafer Polishing Name Role Phone Ursula Easley MD Primary Care Provider [phone] Surgical History Surgery Date Site/Laterality Comments TONSILLECTOMY PROCEDURE: [place] TONSILLECTOMY PRIMARY/SECONDARY <AGE 12; COMMENT: actual age uncertain SECTION PROCEDURE: HISTORICAL DELIVERY; COMMENT: x 2 1996 SHOULDER ARTHROSCOPY PROCEDURE: [place] SURGICAL ARTHROSCOPY SHOULDER W/LSS&RESCJ ADS Medical History [...] Last Done Comments Breast Cancer Screening 1973 Hepatitis B Vaccines (1 of 3 - 19+ 3-dose series) 1992 Pneumococcal Vaccine: 50+ Ye ars (1 of 2 - PCV) 1992 Pneumococcal Vaccine: Pediat rics (0 to 5 Years) and At-Risk Patients (6 to 64 Years) (1 of 2 - PCV) 1992 Cervical Cancer Screening: P ap Smear 1994 DTaP,Tdap,and Td Vaccines (2 - Td or Tdap) 11/17/2019 11/16/2009 Zoster Vaccines (1 of 2) 11/12/2023 COVID-19 Vaccine (1 - 2023-2 5 season) 2023 Colorectal Cancer Screening: Colonoscopy 01/09/2024 Depression Screening 01/09/2024 HIV Screening 01/09/2024 Hepatitis C Screening 01/09/2024 Social Influencers of Health Screening 01/09/2024 Influenza Vaccine (Season Ended) 2024 HIB Vaccines Aged Out No longer eligi [...] patient's age to complete this topic Meningococcal B Vaccine Aged Out No l onger eligible based on patient's age to complete this topic RSV Immunization Patients Un brandy 20 months Aged Out No longer eligible b ased on patient's age to complete this topic Varicella Vaccines Aged Out No longer eligible based on patient's age to complete this topic Care Teams Group Leader Wafer Polishing Relationship Specialty Start Date End Date Ursula Easley MD [address] [place] [id number] PCP - General 01/26/16
[2024-07-17 10:01] LABS: MANUAL DIFF FLAG NO
[2024-07-17 10:08] LABS: Basophils Percent Auto 0.5 % (0-2); Eosinophils Absolute Auto 0.2 X10*3/uL (0.0-0.4); Eosinophils Percent Auto 2.9 % (0-4); Hematocrit 45.9 % (37.0-47.0); Hemoglobin 15.9 g/dl (12.0-16.0); Imm Gran Abs Auto 0.02 X10*3/uL (0.00-0.03); Imm Gran Pct Auto 0.2 % (0.0-0.4); Lymphocytes Absolute Auto 1.9 X10*3/uL (1.2-4.9); Mean Corpuscular HGB Conc 34.6 g/dl (31.0-35.0); Mean Corpuscular Hemoglobin 33.7 pg (27.0-33.0); Mean Corpuscular Volume 97.2 fL (80.0-98.0); Mean Platelet Volume 9.1 fL (9.4-12.3); Monocytes Absolute Auto 0.7 X10*3/uL (0.1-1.2); Monocytes Percent Auto 8.4 % (2-11); Neutrophils Absolute Auto 5.2 x10*3/uL (2.0-8.3); Platelet Count 320 X10*3/uL (160-400); Red Blood Count 4.72 X10*6/uL (4.20-5.50); Red Cell Distribution Width 12.6 % (11.0-16.0); White Blood Count 8.1 X10*3/uL (4.8-10.8)
[2024-07-17 10:45] LABS: Alanine Aminotransferase 9 U/L (0-31); Albumin Level 4.4 g/dL (3.5-5.0); Anion Gap 12 (12-20); Aspartate Amino Transferase 21 U/L (5-31); Bilirubin Total 0.4 mg/dL (0.0-1.0); Blood Urea Nitrogen 9 mg/dL (9-16); Calcium 9.3 mg/dL (8.4-10.2); Carbon Dioxide 26 mmol/L (22-29); Chloride 106 mmol/L (96-108); Cholesterol 259 mg/dL (<200); Estimated Glomerular Filt Rate > 60; Glucose Fasting 80 mg/dL (60-99); HDL Cholesterol 44 mg/dL (>40); LDL Cholesterol Calculated 197 mg/dL (<100); Potassium 3.8 mmol/L (3.3-5.1); Sodium 140 mmol/L (135-145); TSH reflex Free T4 5.21 uIU/mL (0.32-4.0); Triglycerides 94 mg/dL (<150); Vitamin D 25-OH Total 24.2 ng/mL (>30)
[2024-07-17 10:52] LABS: Folate 4.6 ng/mL (> or = 4.0); Vitamin B12 895 pg/mL (200-900)
[2024-07-17 11:25] LABS: Free T4 (Free Thyroxine) 0.87 ng/dL (0.71-1.85)
[2024-07-17 19:45] LABS: Alkaline Phosphatase 60 U/L (39-117)
== END 2024-07-17 06:08 | disposition home or self-care (01) ==
LOC: HO.HMGCLDS 06:07
PROVIDERS: PCP Internal Medicine; Visit Provider Internal Medicine
DX: Z00.00 Encounter for general adult medical examination without abnormal findings (principal); E78.5 Hyperlipidemia, unspecified; E53.8 Deficiency of other specified B group vitamins
CPT/HCPCS: 36415; 80053; 80061; 82306; 82607; 82746; 84439; 84443; 85025

== ENCOUNTER → 2024-10-16 12:35 | Outpatient (REF) | payer OTHER, SELFPAY ==
--- OUTSIDE RECORDS SUMMARY | 2024-10-16 12:37 | XMS_ITS | Clinical Summary ---
Author Organization [facility] Address [address] [place] [address] Care Team Providers Care Forepart Laster Name Role Phone Ursula Easley MD Primary Care Provider [phone] Surgical History Surgery Date Site/Laterality Comments TONSILLECTOMY PROCEDURE: [place] TONSILLECTOMY PRIMARY/SECONDARY <AGE 12; COMMENT: actual age uncertain SECTION PROCEDURE: HISTORICAL DELIVERY; COMMENT: x 2 1996 SHOULDER ARTHROSCOPY PROCEDURE: [place] SURGICAL ARTHROSCOPY SHOULDER W/LSS&RESCJ ADS Medical History [...] ars (1 of 2 - PCV) 1992 Cervical Cancer Screening: P ap Smear 1994 DTaP,Tdap,and Td Vaccines (2 - Td or Tdap) 11/17/2019 11/16/2009 Zoster Vaccines (1 of 2) 11/12/2023 COVID-19 Vaccine (1 - 2023-2 5 season) 2023 Colorectal Cancer Screening: Colonoscopy 01/09/2024 Depression Screening 01/09/2024 HIV Screening 01/09/2024 Hepatitis C Screening 01/09/2024 Social Influencers of Health Screening 01/09/2024 Influenza Vaccine (#1) 2024 HIB Vaccines Aged Out No longer [...] age to complete this topic Care Teams Forepart Laster Relationship Specialty Start Date End Date Ursula Easley MD [address] [place] [id number] PCP - General 01/26/16
--- NOTE | 2024-10-16 12:41 | ECG_ITS ---
Test Reason : F90.2 Blood Pressure : */* mmHG Vent. Rate : 83 BPM Atrial Rate : 83 BPM P-R Int : 136 ms QRS Dur : 78 ms QT Int : 358 ms P-R-T Axes : 72 -23 53 degrees QTcB Int : 420 ms Normal sinus rhythm Possible Left atrial enlargement cannot exclude old anterior and inferior infarcts, but could be normal variants Abnormal ECG When compared with ECG of 21-Sep-2020 08:56, No significant change was found Referred By: Brittney Lim Electronically Signed By: JUSTEN HOWARD
== END ==
LOC: HO.CARD 12:35
PROVIDERS: PCP Internal Medicine; Visit Provider Counselor Addiction (Substance Use Disorder)
DX: F90.2 Attention-deficit hyperactivity disorder, combined type (principal); Z79.899 Other long term (current) drug therapy
CPT/HCPCS: 93005

== ENCOUNTER → 2024-10-16 12:41 | Outpatient (BNV) | payer OTHER, SELFPAY | PROVIDERS: PCP Internal Medicine; Visit Provider Internal Medicine | DX: R94.31 Abnormal electrocardiogram [ECG] [EKG] (principal); F90.2 Attention-deficit hyperactivity disorder, combined type | CPT/HCPCS: 93010 ==

== ENCOUNTER 2024-11-11 07:05 | Outpatient (REF) | payer OTHER, SELFPAY ==
--- OUTSIDE RECORDS SUMMARY | 2024-11-11 07:07 | XMS_ITS | Clinical Summary ---
Author Organization [facility] Address [address] [place] [address] Care Team Providers Care Zigzag Elastic Attacher Name Role Phone Ursula Easley MD Primary Care Provider [phone] Surgical History Surgery Date Site/Laterality Comments TONSILLECTOMY PROCEDURE: [place] TONSILLECTOMY PRIMARY/SECONDARY <AGE 10; COMMENT: actual age uncertain SECTION PROCEDURE: HISTORICAL DELIVERY; COMMENT: x 2 1996 SHOULDER ARTHROSCOPY PROCEDURE: [place] SURGICAL ARTHROSCOPY SHOULDER W/LSS&RESCJ ADS Medical History [...] season) 2023 Colorectal Cancer Screening: Colonoscopy 01/09/2024 HIV Screening 01/09/2024 Hepatitis C Screening 01/09/2024 Social Influencers of Health Screening 01/09/2024 Depression Screening 04/01/2024 Influenza Vaccine (#1) 2024 HIB Vaccines Aged [...] age to complete this topic Care Teams Zigzag Elastic Attacher Relationship Specialty Start Date End Date Ursula Easley MD [address] [place] [id number] PCP - General 01/26/16
== END 2024-11-11 07:06 | disposition home or self-care (01) ==
LOC: HO.HMGCLDS 07:05
PROVIDERS: PCP Internal Medicine; Visit Provider Internal Medicine
DX: E03.9 Hypothyroidism, unspecified (principal)
CPT/HCPCS: 36415; 84443

== ENCOUNTER 2025-02-09 08:57 | Outpatient (AMB) | payer OTHER, SELFPAY ==
--- NOTE | 2025-02-09 09:02 | MHC.OFFVIS ---
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 no concerns Concession Stand Attendant Required: No Information Interpreted: non-clinical & clinical Yard Stocker: Yard Stocker Present (Kimberly) Accompanied by: Self / Same As Patient Allergies No Known Allergies (No Known Allergies*) Allergy (Verified 02/09/25 09:04) Medication List - Last Reconciled 02/09/25 by Ayleen Harris LPN cyanocobalamin (vitamin B-12) 1,000 mcg PO DAILY levonorgestrel (Mirena) 20 mcg intrauterine DIRECTED lisdexamfetamine (Vyvanse) 10 mg PO DAILY Is last menstrual period known: No Do you need a note to return to daycare/school/sports/work: No HPI Comments Details: Patient is a postmenopausal woman presenting for her annual 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 Mortgage Loan Underwriter concerns: none. Currently sexually active. Mirena IUD user. Denies any vaginal dryness or irritation. STI testing offered; she declined. Attempting to eat a healthy diet with calcium and vitamin D and stays active with exercise. Last pap smear; 2023, negative. Last mammogram; 2022. ColoGard is UTD. Denies any family history of breast, ovarian or colon cancer. Everyday smoker, has a plan to use Chantix in the future. [facility] Medical History IUD (intrauterine device) in place Dysplasia of cervix, low grade (OK 1) Irregular heart beat Arthritis COVID-19 vaccine series completed PUD (peptic ulcer disease) ADD (attention deficit disorder) Impingement syndrome of right shoulder Annual physical exam Shoulder pain PTSD (post-traumatic stress disorder) Depression Anxiety Chronic low back pain Surgical History History of loop electrical excision procedure (LEEP) S/P LASIK surgery H/O cone biopsy of cervix H/O shoulder surgery Hx of tonsillectomy Hx of section Social History Housing: House Alcohol intake: current Alcohol intake frequency: holidays/special occasions only Patient Tobacco Use Status: Current everyday Tobacco user Tobacco use type: Cigarette Cigarette Packs Per Day: 1 Cigarettes Per Day: 20.0 Years Smoked: 33 e-Cigarette/Vaping Use: Never Used service: No Current occupational status: employed 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 Sexual orientation: Straight/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 Gender identity: Female Cognitive needs: No Hearing needs: No Vision needs: No Female Reproductive History Menstrual Age of Menarche: 10 control method: progestin IUCD (mirena placed 08/15/20) Total pregnancies: 5 Number of Living Children: 2 Ab induced: 2 Ab spontaneous: 1 Date of last pap smear: 02/04/24 History of abnormal pap smear: No Date of Mammogram: 08/07/22 History of abnormal mammogram: No Review of Systems Const All systems reviewed & are unremarkable except as noted in HPI and below Reports as per HPI Eyes Reports no additional complaints ENT Reports no additional complaints Card Reports no additional complaints Resp Reports no additional complaints GI Reports as per HPI and Reports no additional complaints Reports as per HPI Musc Reports no additional complaints Skin/Breast Reports as per HPI Neuro Reports no additional complaints Psych Reports no additional complaints Endo Reports no additional complaints Iván/Lymph Reports no additional complaints Aller/Immun Reports no additional complaints Physical Exam Vital Signs: Last Vital Signs BP 102/64 02/09/25 09:10 BMI result Body Mass Index 26.4 Const General: cooperative, healthy appearing, no acute distress, well developed and alert Orientation/consciousness: patient oriented x3 HEENT Head: Yes normal to inspection Eyes General: appearance normal, both eyes and all related structures Neck Neck: Yes normal visual inspection Thyroid: Thyroid normal Chest Chest palpation & inspection: normal inspection of the chest and other (no puckering, dimpling, peau de orange, retraction, discharge, masses) Breast/axilla inspection: normal inspection of the breasts Breast/axilla palpation: normal palpation of the breasts Resp Effort & Inspection: normal respiratory effort GI Inspection: Yes normal to inspection Palpation (GI): Soft to palpation Rectal Exam - Female: deferred General: Yes bladder normal to palpation External Female Exam: normal external appearance and normal appearance of the urethra Speculum Exam - Vagina: normal appearance of the vagina, normal palpation and normal vaginal discharge Speculum Exam - Cervix: normal appearance of the cervix, normal palpation and Other cervical findings present (Post cone bx appearance, IUD strings at the os) Bimanual exam- vagina & uterus: normal bimanual exam, normal palpation, uterine size normal, bladder normal to palpation, normal palpation and non-tender Bimanual Exam- Adnexa, other: no masses Skin General skin exam: no rashes or lesions noted Rashes: no rashes Neuro General: patient oriented x3 Cognition (Neuro): normal cognition Extrem General: Yes normal to inspection Psych Attitude: cooperative Thought process: Normal thought process present Assessment & Plan Assessment & Plan (1) Encounter for well woman exam with routine gynecological exam: Code(s): Z01.419 - Encounter for gynecological examination (general) (routine) without abnormal findings Category: Medical Plan Discussed: Current recommendations for pap smears per ASCCP guidelines. Breast awareness, periodic self breast exams and yearly mammogram. Mammogram order placed. Maintain a healthy lifestyle, well balanced diet including Calcium 1,200 mg and Vitamin D 600 IU daily, and routine exercise. Patient verbalizes understanding and agrees to the plan of care. She was given opportunity to ask questions and all questions were answered to the best of my ability. RTO in 1 year for annual litharge supervisor exam. This note is constructed using voice recognition software. While every effort has been made to ensure accuracy, home care rn errors may have been included. Orders: Orders MM tomosynthesis screening BI Today Z12.31 - Encounter for screening mammogram for malignant neoplasm of breast Coding Level of Care Code Est Pt Prev Care 40-64y(51080) Diagnoses Encounter for well woman exam with routine gynecological exam Z01.419
[2025-02-09 09:10] VITALS: BP 102/64; BMI 26.4
--- OUTSIDE RECORDS SUMMARY | 2025-02-09 09:30 | XMS_ITS | Clinical Summary ---
Author Organization [facility] Address [address] [place] [address] Care Team Providers Care Caramel Candy Maker Helper Name Role Phone rUsula Easley MD Primary Care Provider [phone] Surgical History Surgery Date Site/Laterality Comments TONSILLECTOMY PROCEDURE: [place] TONSILLECTOMY PRIMARY/SECONDARY <AGE 12; COMMENT: actual age uncertain SECTION PROCEDURE: HISTORICAL DELIVERY; COMMENT: x 2 1996 SHOULDER ARTHROSCOPY PROCEDURE: [place] SURGICAL ARTHROSCOPY SHOULDER W/LSS&RESCJ ADS Medical History [...] Last Done Comments Breast Cancer Screening 1973 Colorectal Cancer Screening: Colonoscopy 1973 Hepatitis B Vaccines (1 of 3 - 19+ 3-dose series) 1992 Pneumococcal Vaccine: 50+ Ye ars (1 of 2 - PCV) 1992 Cervical Cancer Screening: P ap Smear 1994 DTaP,Tdap,and Td Vaccines (2 - Td or Tdap) 11/17/2019 11/16/2009 Zoster Vaccines (1 of 2) 11/12/2023 HIV Screening 01/09/2024 Hepatitis C Screening 01/09/2024 Social Influencers of Health Screening 01/09/2024 Depression Screening 04/01/2024 COVID-19 Vaccine (1 - 2024-2 6 season) 2024 Influenza Vaccine (#1) 2024 RSV Immunization Adult Patie nts (1 - 1-dose 75+ series) 2048 HIB Vaccines Aged Out No longer eligi [...] age to complete this topic Care Teams Caramel Candy Maker Helper Relationship Specialty Start Date End Date Ursula Easley MD [address] [place] [id number] PCP - General 01/26/16
== END 2025-02-09 09:30 | disposition home or self-care (01) ==
LOC: HO.HWS 08:58
PROVIDERS: PCP Internal Medicine; Visit Provider Advanced Practice Midwife
DX: Z01.419 Encounter for gynecological examination (general) (routine) without abnormal findings (principal)
CPT/HCPCS: 99396; 99459

== ENCOUNTER → 2025-02-18 15:05 | Outpatient (REF) | payer OTHER, SELFPAY ==
--- OUTSIDE RECORDS SUMMARY | 2025-02-18 20:27 | XMS_ITS | Clinical Summary ---
Author Organization [facility] Address [address] [place] [address] Care Team Providers Care Medical Receptionist Name Role Phone Ursula Easley MD Primary Care Provider [phone] Surgical History Surgery Date Site/Laterality Comments TONSILLECTOMY PROCEDURE: [place] TONSILLECTOMY PRIMARY/SECONDARY <AGE 12; COMMENT: actual age uncertain SECTION PROCEDURE: HISTORICAL DELIVERY; COMMENT: x 2 1996 SHOULDER ARTHROSCOPY PROCEDURE: [place] SURGICAL ARTHROSCOPY SHOULDER W/LSS&RESCJ ADS Medical History [...] age to complete this topic Care Teams Medical Receptionist Relationship Specialty Start Date End Date Ursula Easley MD [address] [place] [id number] PCP - General 01/26/16
== END ==
LOC: HO.SL 15:05
PROVIDERS: PCP Internal Medicine; Visit Provider Internal Medicine
DX: G47.33 Obstructive sleep apnea (adult) (pediatric) (principal)
CPT/HCPCS: 95806

== ENCOUNTER → 2025-02-18 15:16 | Outpatient (BNV) | payer OTHER, SELFPAY | PROVIDERS: PCP Internal Medicine; Visit Provider Psychiatry & Neurology Neurology | DX: G47.30 Sleep apnea, unspecified (principal) | CPT/HCPCS: 95806 ==